=== PATIENT | female | born 1990 | race Hispanic/Latino ===

== ENCOUNTER 2018-11-05 22:38 | Emergency (ER) | payer SELFPAY ==
[~2018-11-05] VITALS: Ht 160 cm; Wt 123.8 kg
--- NOTE | 2018-11-06 00:03 | Diagnostic Imaging Report ---
EXAMINATION: PA and lateral views of the chest. COMPARISON: None CLINICAL HISTORY: Chest pain, cough, congestion and sore throat DISCUSSION: Lines/tubes: None. Lungs: The lungs are well inflated. 4-5 mm calcified granuloma likely in the posterior right lower lobe. There is no evidence of pneumonia or pulmonary edema. Pleura: There is no pleural effusion or pneumothorax. Heart and mediastinum: Cardiomediastinal silhouette is unremarkable. Pulmonary vasculature is normal. Bones and soft tissues: No acute bony abnormalities. IMPRESSION: No acute cardiopulmonary abnormalities. Signed by: Dr. Jose Qureshi M.D. on 11/06/2018 12:00 AM
== END 2018-11-06 00:55 | disposition home or self-care (01) ==
LOC: ER 22:38
DX: R05 Cough (principal); B34.9 Viral infection, unspecified
CPT/HCPCS: 71046; 83518; 87070; 99283

== ENCOUNTER 2021-01-26 06:35 | Emergency (ER) | payer OTHER ==
[~2021-01-26] VITALS: Ht 160 cm; Wt 123.8 kg
[2021-01-26] MEDS ORDERED: TETANUS/DIPHTHERIA TOX ADULT 0.5 ML SYR ONE (06:47)
[2021-01-26] MEDS ORDERED: TETANUS/DIPHTHERIA TOX ADULT 0.5 ML SYR IM ONE (07:00)
== END 2021-01-26 07:28 | disposition home or self-care (01) ==
LOC: ER 06:42
DX: S61.451A Open bite of right hand, initial encounter (principal); W54.0XXA Bitten by dog, initial encounter; Y92.008 Other place in unspecified non-institutional (private) residence as the place of occurrence of the external cause
CPT/HCPCS: 90714; 99283